=== PATIENT | female | born 1970 | race Caucasian/White ===

== ENCOUNTER 2020-06-22 20:19 | Emergency (ER) | payer OTHER ==
[2020-06-22 21:26] LABS: BILIRUBIN NEGATIVE (NEGATIVE); BLOOD NEGATIVE Ery/uL (NEGATIVE); CLARITY CLEAR (CLEAR); COLOR YELLOW (YELLOW); GLUCOSE (U) NORMAL (NORMAL); LEUKOCYTES NEGATIVE Leu/uL (NEGATIVE); NITRITE NEGATIVE (NEGATIVE); PROTEIN NEGATIVE (NEGATIVE); SPECIFIC GRAVITY <=1.005 (1.001-1.030); UROBILINOGEN 0.2 mg/dL (0.2-1.0)
[2020-06-22 21:27] LABS: AMPHETAMINES NEGATIVE (NEGATIVE); BARBITURATES NEGATIVE (NEGATIVE); ECSTASY (MDMA) NEGATIVE (NEGATIVE); MARIJUANA (THC) NEGATIVE (NEGATIVE); METHADONE NEGATIVE (NEGATIVE); OPIATES NEGATIVE (NEGATIVE); OXYCODONE NEGATIVE (NEGATIVE)
[2020-06-22 21:28] LABS: HCG (URINE) SCREEN NEGATIVE (NEGATIVE)
[2020-06-22 21:31] LABS: BASOPHIL 0.7 % (0-2); EOSINOPHIL 1.6 % (0-5); HCT 44.8 % (37.0-47.0); HGB 15.3 g/dl (12.5-16.0); LYMPHOCYTE 43.5 % (15-48); MCH 34.4 pg (25.0-31.0); MCHC 34.2 g/dL (32.0-36.0); MCV 100.7 fL (78.0-100.0); MONOCYTE 6.3 % (0-12); MPV 10.1 fL (6.0-9.5); NEUTROPHIL 47.8 % (41-80); NRBC 0; PLT 346 K/uL (150-400); RBC 4.45 M/uL (4.20-5.40); WBC 6.7 K/uL (4.0-10.5)
[2020-06-22 21:47] LABS: CREATININE 0.53 mg/dL (0.51-0.95)
== END 2020-06-23 02:00 | disposition home or self-care (01) ==
LOC: FER 20:19
PROVIDERS: Student in an Organized Health Care Education/Training Program
DX: N28.89 Other specified disorders of kidney and ureter (principal); I10 Essential (primary) hypertension; J44.9 Chronic obstructive pulmonary disease, unspecified; F17.210 Nicotine dependence, cigarettes, uncomplicated; Z90.710 Acquired absence of both cervix and uterus
CPT/HCPCS: 36415; 80048; 80305; 81003; 84703; 85025; Q9967

== ENCOUNTER 2021-06-17 15:32 | Emergency (ER) | payer OTHER ==
[2021-06-17] MEDS ORDERED: AMOX TR-K CLV1 EAC4 PO (17:18)
[2021-06-17] MEDS ORDERED: VENTOLIN HFA IN18 GM INH (17:18)
[2021-06-17] MEDS ORDERED: PREDNISONE 20MG20 MG PO (17:18)
[2021-06-17] MEDS ORDERED: NYSTATIN SUSP1 ML/ML SSP (17:31)
== END 2021-06-17 17:28 | disposition home or self-care (01) ==
LOC: FER 15:32
DX: J44.1 Chronic obstructive pulmonary disease with (acute) exacerbation (principal); J06.9 Acute upper respiratory infection, unspecified; F17.210 Nicotine dependence, cigarettes, uncomplicated
CPT/HCPCS: 71045; J1100

== ENCOUNTER → 2021-09-24 | Day surgery (SDC) | payer OTHER ==
[~2021-09-24] VITALS: Ht 170.2 cm; Wt 86.7 kg
[~2021-09-24] MED LIST: AMOX TR-K CLV1 EAC4 PO; ASPIRIN EC81 MG PO; LIPITOR20 MG PO; NYSTATIN SUSP1 ML/ML SSP; PREDNISONE 20MG20 MG PO; PRINIVIL10 MG PO; VENTOLIN HFA IN18 GM INH; VITAMIN D310 MC4 PO
[2021-09-24 08:18] LABS: HCT 42.6 % (37.0-47.0); HGB 14.6 g/dl (12.5-16.0); MCH 34.2 pg (25.0-31.0); MCHC 34.3 g/dL (32.0-36.0); MCV 99.8 fL (78.0-100.0); RBC 4.27 M/uL (4.20-5.40); RDW 13.2 % (11.5-14.0); WBC 9.1 K/uL (4.0-10.5)
[2021-09-24 08:49] LABS: ALBUMIN 4.1 g/dL (3.4-5.0); BILIRUBIN - TOTAL 0.3 mg/dL (0.2-1.0); CREATININE 0.58 mg/dL (0.51-0.95); POTASSIUM 3.9 mmol/L (3.5-5.1); TOTAL PROTEIN 7.1 g/dL (6.4-8.2)
== END | disposition home or self-care (01) ==
LOC: FAS 07:33
PROVIDERS: Surgery
DX: K92.1 Melena (principal); R10.9 Unspecified abdominal pain; K59.00 Constipation, unspecified; K64.0 First degree hemorrhoids; K64.4 Residual hemorrhoidal skin tags; E78.5 Hyperlipidemia, unspecified; I10 Essential (primary) hypertension; J44.9 Chronic obstructive pulmonary disease, unspecified; Z79.82 Long term (current) use of aspirin
CPT/HCPCS: 36415; 80053; J2704; J7120